=== PATIENT | male | born 2005 | race Two or more races ===

== ENCOUNTER 2024-02-12 16:03 | Emergency (ER) | payer MEDICAID, OTHER ==
[~2024-02-12] VITALS: Ht 177.8 cm; Wt 65.0 kg
[2024-02-12] MEDS: HYDROcodone-ACET 10/325MG TAB PO ONE (17:41)
[2024-02-12 18:44] VITALS: PULSE 66; RESP 16; TEMP 97; O2SAT 96
[2024-02-12 19:11] LABS: Basophils # (auto) 0 10 ^3/uL (0-0.2); Basophils % (auto) 0.2 % (0.0-2.0); Eosinophils # (auto) 0 10 ^3/uL (0-0.8); Hematocrit 41.5 % (41.0-53.0); Hemoglobin 14.5 g/dL (13.5-17.5); Lymphocytes # (auto) 0.4 10 ^3/uL (0.4-5.4); Mean Corpuscular Hemoglobin 31.2 pg (28.0-32.0); Mean Corpuscular Hgb Conc. 34.9 g/dL (32.0-36.0); Mean Corpuscular Volume 89.5 fL (80.0-100.0); Monocytes # (auto) 0.9 10 ^3/uL (0-1.3); Monocytes % (auto) 7.5 % (0.0-12.0); Neutrophils # (auto) 10.8 10 ^3/uL (1.6-8.6); Neutrophils % (auto) 89.3 % (37.0-80.0); Red Blood Cells 4.64 10^6/uL (4.5-5.90); Red Cell Distribution Width 13.6 % (11.8-14.3); White Blood Cell 12.2 10^3/uL (4.4-10.8)
[2024-02-12 19:19] LABS: Anion Gap 9 (5-15); Carbon Dioxide 24 mmol/L (20-30); Chloride 106 mmol/L (98-107); Potassium 3.6 mmol/L (3.5-5.1); Sodium 139 mmol/L (136-145)
[2024-02-12 19:25] LABS: BUN/Creatinine Ratio 10.1 (10.0-20.0); Blood Urea Nitrogen 9 mg/dL (9-23); Glucose 85 mg/dL (74-106)
[2024-02-12 19:30] VITALS: PULSE 62; RESP 13; O2SAT 97
[2024-02-12] MEDS: ONDANSETRON HCL 4 MG/2 ML VIAL IV ONE (20:39)
[2024-02-12] MEDS: MORPHINE SULFATE 4 MG/ML SYR/VIAL IV ONE (20:40)
[2024-02-12] MEDS ORDERED: HYDR-4902 PO (20:51)
[2024-02-12 22:07] VITALS: BP 109/66; PULSE 76; RESP 20; O2SAT 97
[2024-02-12] MEDS: HYDROcodone-ACET 5/325MG TAB PO ONE (22:54)
== END 2024-02-12 22:55 | disposition home or self-care (01) ==
LOC: ER 16:03
DX: S82.142A Displaced bicondylar fracture of left tibia, initial encounter for closed fracture (principal); V09.9XXA Pedestrian injured in unspecified transport accident, initial encounter; Y93.55 Activity, bike riding; Y92.828 Other wilderness area as the place of occurrence of the external cause; Y99.8 Other external cause status
CPT/HCPCS: 29505; 36415; 73562; 80048; 85025; 96374; 96375; 99285; J2270; J2405